=== PATIENT | female | born 1960 | race Caucasian/White ===

== ENCOUNTER 2021-12-08 15:00 | Outpatient (CLI) | payer OTHER | END 2021-12-08 15:01 | disposition home or self-care (01) | LOC: BURRAD 15:00 | PROVIDERS: ATTEND Nurse Practitioner Family | DX: R05.1 Acute cough (principal) | CPT/HCPCS: 71046 ==

== ENCOUNTER 2022-08-13 15:11 | Outpatient (CLI) | payer OTHER | END 2022-08-13 15:12 | disposition home or self-care (01) | LOC: BURRAD 15:11 | PROVIDERS: ATTEND Family Medicine | DX: M79.671 Pain in right foot (principal) ==